=== PATIENT | male | born 1995 | race Hispanic/Latino ===

== ENCOUNTER 2022-07-31 15:02 | Emergency (ER) | payer OTHER ==
[~2022-07-31] VITALS: Ht 188 cm; Wt 108.0 kg
[~2022-07-31 15:02] MED LIST: AMOX-429 PO; LACT1CAP58 PO
[2022-07-31] MEDS ORDERED: IBUP-2070 PO (17:29)
[2022-07-31] MEDS ORDERED: KETOROLAC 30MG VIAL (30MG/ML) IM ONE (17:30)
[2022-07-31 17:37] VITALS: BP 138/72
== END 2022-07-31 17:42 | disposition home or self-care (01) ==
LOC: EDH 15:02
DX: J02.8 Acute pharyngitis due to other specified organisms (principal); B97.89 Other viral agents as the cause of diseases classified elsewhere; Z79.899 Other long term (current) drug therapy; Z79.2 Long term (current) use of antibiotics; Z20.822 Contact with and (suspected) exposure to COVID-19
CPT/HCPCS: 99283; 87635; 87880; 87804 ×2; 96372; C9803; J1885

== ENCOUNTER 2022-08-23 09:00 | Emergency (ER) | payer OTHER ==
[~2022-08-23] VITALS: Ht 177.8 cm; Wt 97.5 kg
[~2022-08-23 09:00] MED LIST changes: +IBUP-2070 PO
[2022-08-23 09:20] LABS: APPEARANCE,URINE CLEAR (CLEAR); BILIRUBIN,URINE NEGATIVE (NEGATIVE); COLOR,URINE YELLOW (YELLOW); GLUCOSE, URINE (UA) NEGATIVE (NEGATIVE); KETONES,URINE NEGATIVE (NEGATIVE); LEUKOCYTE ESTERASE ,URINE NEGATIVE Leu/uL (NEGATIVE); NITRATE,URINE NEGATIVE (NEGATIVE); OCCULT BLOOD,URINE TRACE-INTACT (NEGATIVE); PROTEIN,URINE NEGATIVE (NEGATIVE); UROBILINOGEN,URINE 0.2 mg/dL (0.2-1.0)
[2022-08-23 09:27] LABS: AMPHET/METH SCREEN,URINE NEGATIVE (NEGATIVE); BARBITURATE SCREEN, URINE NEGATIVE (NEGATIVE); BENZODIAZEPINES SCREEN,URINE POSITIVE (NEGATIVE); CANNABINOID SCREEN,URINE POSITIVE (NEGATIVE); COCAINE SCREEN,URINE POSITIVE (NEGATIVE); OPIATE SCREEN,URINE NEGATIVE (NEGATIVE); PHENCYCLIDINE SCREEN,URINE NEGATIVE (NEGATIVE)
[2022-08-23 09:32] LABS: RBC,URINE 0-1 /HPF (0-1)
[2022-08-23 09:33] LABS: BACTERIA,URINE Rare /HPF (None Seen); SQUAMOUS EPITHELIAL CELL,UR Rare /HPF (0-2)
[2022-08-23 09:41] LABS: BASOPHILS % (AUTO) 0.5 % (0.0-5.0); EOSINOPHILS % (AUTO) 0.4 % (0.0-8.0); HEMATOCRIT 46.5 % (42-54); MEAN CORPUSCULAR HEMOGLOBIN 31.8 pg (27.0-33.0); MEAN CORPUSCULAR HGB CONC 34.4 g/dL (32.0-36.0); MEAN CORPUSCULAR VOLUME 92.4 fL (79-99); MONOCYTES % (AUTO) 5.9 % (3.0-13.0); NEUTROPHILS % (AUTO) 69.7 % (40.0-77.0); PLATELET COUNT (AUTO) 350 K/uL (130-400); RED BLOOD CELL COUNT(AUTO) 5.03 MIL/uL (4.50-6.20); RED CELL DISTRIBUTION WIDTH 13.2 % (11.0-15.5); WHITE BLOOD COUNT (AUTO) 20.2 K/uL (4.8-10.8)
[2022-08-23 09:56] LABS: CARBON DIOXIDE 24 mmol/L (21-32); CHLORIDE 101 mmol/L (101-111); GLOMERULAR FILTR. RATE CALC 94 mL/min (>60); GLUCOSE,RANDOM 97 mg/dL (70-105); POTASSIUM 3.4 mmol/L (3.5-5.1); SODIUM SERUM 138 mmol/L (136-145); UREA NITROGEN, BLOOD 12 mg/dL (7-18)
[2022-08-23 10:01] LABS: ALANINE AMINOTRANSFERASE 35 U/L (12-78); ALBUMIN 3.9 g/dL (3.5-5.0); ASPARTATE AMINOTRANSFERASE 21 U/L (10-37); TOTAL PROTEIN, SERUM 7.3 g/dL (6.0-8.3)
[2022-08-23 10:12] LABS: ALCOHOL, BLOOD < 3 mg/dL (0-10)
[2022-08-23] MEDS ORDERED: IBUP-2070 PO (10:53)
[2022-08-23] MEDS ORDERED: 0.9% NACL 500ML IV.SOLN 500 ML IV ONE (11:00)
[2022-08-23] MEDS ORDERED: ACETAMINOPHEN 500 MG TABLET PO ONE (11:00)
[2022-08-23] MEDS ORDERED: KETOROLAC 15MG/ML VIAL (15MG/ML) IV ONE (11:00)
[2022-08-23 11:46] VITALS: BP 133/81
== END 2022-08-23 11:57 | disposition home or self-care (01) ==
LOC: EDH 09:00
DX: R07.89 Other chest pain (principal); F19.10 Other psychoactive substance abuse, uncomplicated; F17.200 Nicotine dependence, unspecified, uncomplicated; Z79.899 Other long term (current) drug therapy
CPT/HCPCS: 99285; 96374; 71045; 96361; 84484; 80053; 80305; 85025; 36415; 93005; 81001; J7040; J1885

== ENCOUNTER 2024-06-04 09:35 | Emergency (ER) | payer BC ==
[~2024-06-04] VITALS: Ht 188 cm; Wt 124.7 kg
[2024-06-04 09:36] VITALS: BP 142/82; PULSE 61; RESP 16; TEMP 97.9
[2024-06-04] MEDS ORDERED: AMOX1TAB16 PO (09:56)
[2024-06-04] MEDS ORDERED: FLUT16H NS (09:56)
--- NOTE | 2024-06-04 09:56 | ERN ---
General Chief Complaint: Cough Stated Complaint: COUGH, CONGESTION, SORE THROAT Time Seen by MD: 09:38 Source: patient History of Present Illness Initial Comments Patient is a 28-year-old male coming in to be evaluated for URI symptoms. Patient states that the symptoms have been ongoing for three days. Patient also states he has been having a cough. Allergies: Coded Allergies: No Known Drug Allergies (Verified Allergy, Unknown, 07/18/14) Home Meds Active Scripts Ibuprofen (Ibuprofen) 600 Mg Tablet, 600 MG PO Q6H PRN for PAIN, #30 TAB Prov:JULIETH PALMA MD 08/23/22 Ibuprofen (Ibuprofen) 600 Mg Tablet, 600 MG PO Q6H PRN for PAIN for 5 Days, #20 TAB Prov:JABIER MARTINEZP 07/31/22 Lactobacillus Rhamnosus GG (Culturelle) 1 Each Capsule, 1 EACH PO DAILYBKFST, #30 CAP Prov:JOHNNA CASTANEDA MD 07/20/14 Amoxicillin/Potassium Clav (Augmentin 875-125 Tablet) 1 Each Tablet, 1 EACH PO BID, #14 TAB Prov:JOHNNA CASTANEDA MD 07/20/14 Past Medical History Past Medical History: No Pertinent History Past Surgical History: None Social History Social History: Smokers, Drugs, ETOH ROS Dictation CONSTITUTIONAL: No chills, no fever, no weakness, no diaphoresis, no malaise. HEAD/FACE: No signs of trauma. EENT: No eye pain, no blurred vision, no tearing, no double vision, no ear pain, no ear discharge, no nose pain, no nasal congestion, no throat pain, no throat swelling, no mouth pain. RESPIRATORY: cough, no orthopnea, SOB, no stridor, no wheezing. CARDIOVASCULAR: No chest pain, no edema, no palpitations, no syncope. GASTROINTESTINAL/ABDOMINAL: No abdominal pain, no constipation, no diarrhea, no nausea, no vomiting. GENITOURINARY: No abnormal discharge, no dysuria, no frequent urination, no hematuria. No complaints of pain in the genitals. MUSCULOSKELETAL: No back pain, no gout, no joint pain, no joint swelling, no muscle pain, no muscle stiffness, no neck pain. INTEGUMENTARY: No change in color, no change in hair/nails, no dryness, no lesion, no lumps, no rash. NEUROLOGICAL/PSYCH: No anxiety, not depressed, no emotional problem, no headache, no numbness, no pre-existing deficit, no history of seizures, no tremors, no weakness. HEMATOLOGIC/LYMPHATIC: Not anemic, no history of blood clots, no apparent bleeding, no bruising, glands not swollen. All Systems Negative, Except as Noted. Physical Exam Physical Exam Dictation VITAL SIGNS: Reviewed. GENERAL APPEARANCE: Alert, oriented x3, no acute distress, obese. HEAD AND FACE: Non-traumatic. EYES: PERRL, pink conjunctivas, eyelid no trauma, anterior chamber clear. EARS: Pinnas intact and no signs of trauma or erythema. Ear canals clear and no discharge. TMs erythema. NOSE: No discharge, no bleeding. Bilateral nasal turbinate swelling OROPHARYNX: Mouth normal, teeth no caries, tongue pink. Pharynx clear, no erythema. Tonsils no exudates, no abscesses noted. Mucous membrane moist. NECK: Supple, non-tender, no thyromegaly, no masses, no JVD, no bruits. BREAST: Deferred. CHEST: No tenderness, no crepitus, no paradoxical movement, no retractions. LUNGS: Clear, well-ventilated, symmetric, no rales, no wheezing, no rhonchi, no stridor, good breath sounds bilaterally. HEART: Regular rate, regular rhythm, no murmur, no gallops. VASCULAR: No peripheral edema. ABDOMEN: Soft, positive bowel sounds, nondistended, no guarding, nontender, no rebound, no masses no hepatomegaly, no splenomegaly, no Aguirre's sign, no h ernias. RECTAL: Deferred. GENITAL: Deferred. NEUROLOGICAL: Normal speech, gross motor function intact, gross sensory functi on intact. MUSCULOSKELETAL: Neck nontender, full range of motion, back nontender, full range of motion. EXTREMITIES: Nontender, full range of motion. SKIN: Color pink, dry, no turgor, no rash, no lacerations, no abrasions, no contusions. LYMPHATICS: Deferred. Results Laboratory and Microbiology Labs Reviewed?: Yes MDM MDM: Differential diagnosis: Sinusitis, URI Patient is 28-year-old male coming in to be evaluated for URI symptoms. On physical exam bilateral nasal turbinate swelling bilateral tympanic membrane erythema oropharyngeal erythema. Patient will be discharged with a diagnosis of sinusitis antibiotics will be provided I advised him appropriate follow up with PCP in 1-2 days. ED Course Orders Procedure Category Date Status Time Dexamethasone 4mg/Ml PHA 06/04/24 Verified 1ml Vial (Dexametha 10:00 Ketorolac PHA 06/04/24 Verified Tromethamine 30mg/Ml 10:00 Vital Signs Date Time Temp Pulse Resp B/P (MAP) Pulse Ox O2 Delivery O2 Flow Rate FiO2 06/04/24 09:36 97.9 61 16 142/82 97 Room Air 0 DX & DISP Disposition: Discharge Departure Impression: Primary Impression: Sinusitis Condition: Stable Scripts Fluticasone Propionate (Flonase Nasal [place]) 50 Mcg/Actuation [place] 2 SPRAY NS DAILY, #16 GM 0 Refills Prov: FERNANDO TORRES MD 06/04/24 Amoxicillin/Potassium Clav (Amox Tr-K Clv 875-125 mg Tab) 875 Mg-125 Mg Tablet 1 TAB PO BID for 10 Days, #20 TAB 0 Refills Prov: FERNANDO TORRES MD 06/04/24 Additional Instructions: FOLLOW-UP WITH PRIMARY CARE PROVIDER IN 1 TO 2 DAYS. TAKE MEDICATIONS DIRECTED HERE IN THE EMERGENCY ROOM. OKAY TO CONTINUE HOME MEDICATIONS UNLESS OTHERWISE DISCUSSED DURING YOUR VISIT IN THE EMERGENCY ROOM TODAY. RETURN TO YOUR NEAREST EMERGENCY ROOM IF SYMPTOMS WORSEN OR IF THERE IS NO IMPROVEMENT. CALL 911 IF YOU NEED IMMEDIATE ASSISTANCE. TAKE TYLENOL [id number] NEEDED AND IF NO CONTRAINDICATIONS ARE PRESENT. INCREASE ORAL HYDRATION. A WOUND CULTURE OR URINE CULTURE WAS ORDERED HERE IN THE EMERGENCY ROOM DEPARTMENT PLEASE FOLLOW-UP WITH PRIMARY CARE PROVIDER AND ADVISE THEM TO GET REPEAT PORTS FROM OUR FACILITY. IF YOU HAD ANY KEITH WRAP/SPLINTS THAT WERE APPLIED HERE, PLEASE DO NOT REMOVE THEM UNTIL YOU SEE YOUR PRIMARY CARE OR SPECIALTY. Referrals: Referrals: NONE (PCP) GAURI BERRIOS MD Time of Disposition: 09:55 FERNANDO TORRES MD Jun 04, 2024 09:56
[2024-06-04] MEDS: ketOROlac 30MG VIAL (30MG/ML) IM ONE (10:06)
[2024-06-04] MEDS: dexaMETHasone SOD PHOSPHATE 4 MG/ML 1ML VIAL IM ONE (10:06)
== END 2024-06-04 10:21 | disposition home or self-care (01) ==
LOC: EDH 09:35
DX: J32.9 Chronic sinusitis, unspecified (principal); F17.200 Nicotine dependence, unspecified, uncomplicated
CPT/HCPCS: 99284; 96372 ×2; J1100; J1885

== ENCOUNTER 2025-04-30 17:33 | Emergency (ER) | payer BC ==
[~2025-04-30] VITALS: Ht 185.4 cm; Wt 111.6 kg
[~2025-04-30 17:33] MED LIST changes: +AMOX1TAB16 PO; +FLUT16H NS; +IBUP-1492 PO; -IBUP-2070 PO
[2025-04-30] MEDS: AZITHROMYCIN 250 MG TABLET PO ONE (17:59)
[2025-04-30 18:00] LABS: APPEARANCE,URINE CLEAR (CLEAR); GLUCOSE, URINE (UA) NEGATIVE (NEGATIVE); LEUKOCYTE ESTERASE ,URINE NEGATIVE Leu/uL (NEGATIVE); NITRATE,URINE NEGATIVE (NEGATIVE); OCCULT BLOOD,URINE +- (TRACE) (NEGATIVE)
[2025-04-30] MEDS: LIDOCAINE HCL 1% 20 ML VIAL ONE (18:01)
[2025-04-30 18:02] LABS: ADD UA MICROSCOPIC YES
--- NOTE | 2025-04-30 18:09 | ERN ---
General Chief Complaint: Penis Problem Stated Complaint: PENILE DRAINAGE Time Seen by MD: 17:37 Time Seen by Midlevel: 17:37 Source: patient History of Present Illness Initial Comments 29-year-old male presenting to the ER with penile discharge described as yellowish in nature. Denies any dysuria or hematuria. Patient states his symptoms started two days ago. He is sexually active with last reported sexual intercourse one week ago. He does admit history of a sexually transmitted disease in the past. Allergies: Coded Allergies: No Known Drug Allergies (Verified Allergy, Unknown, 07/18/14) Home Meds Active Scripts Fluticasone Propionate (Flonase Nasal [place]) 50 Mcg/Actuation [place], 2 SPRAY NS DAILY, #16 GM 0 Refills Prov:FERNANDO TORRES MD 06/04/24 Amoxicillin/Potassium Clav (Amox Tr-K Clv 875-125 mg Tab) 875 Mg-125 Mg Tablet, 1 TAB PO BID for 10 Days, #20 TAB 0 Refills Prov:FERNANDO TORRES MD 06/04/24 Ibuprofen (Ibuprofen) 600 Mg Tablet, 600 MG PO Q6H PRN for PAIN, #30 TAB Prov:JULIETH PALMA MD 08/23/22 Ibuprofen (Ibuprofen) 600 Mg Tablet, 600 MG PO Q6H PRN for PAIN for 5 Days, #20 TAB Prov:JABIER MARTINEZP 07/31/22 Lactobacillus Rhamnosus GG (Culturelle) 1 Each Capsule, 1 EACH PO DAILYBKFST, #30 CAP Prov:JOHNNA CASTANEDA MD 07/20/14 Amoxicillin/Potassium Clav (Augmentin 875-125 Tablet) 1 Each Tablet, 1 EACH PO BID, #14 TAB Prov:JOHNNA CASTANEDA MD 07/20/14 Past Medical History Past Medical History: STD Past Surgical History: None Social History Social History: Smokers, Drugs, ETOH ROS Dictation CONSTITUTIONAL: Negative except for HPI HEAD/FACE: Negative except for HPI EENT: Negative except for HPI RESPIRATORY: Negative except for HPI GASTROINTESTINAL/ABDOMINAL: Negative except for HPI GENITOURINARY: Negative except for HPI MUSCULOSKELETAL: Negative except for HPI INTEGUMENTARY: Negative except for HPI NEUROLOGICAL/PSYCH: Negative except for HPI HEMATOLOGIC/LYMPHATIC: Negative except for HPI All Systems Negative, Except as noted above. 13 point review of systems assessed and all negative except for above. Physical Exam Physical Exam Dictation Vital Signs reviewed General Appearance: Alert, oriented x 3, no acute distress, well developed, nourished. Head and Face: non-traumatic. Eyes: PERRL, pink conjunctivas, eyelid no trauma, anterior chamber with arcus senilis. Ears: Pinnas intact and no signs of trauma or erythema ear canals clear and no discharge TM no erythema Nose: No discharge, no bleeding. Oropharynx: Mouth normal, tongue pink, pharynx clear,no erythema, tonsils no exudates, no abscesses noted, mucous membrane moist Neck: Supple, non-tender, no thyromegaly, no masses, no JVD, no bruits Breast:Deferred Chest:No tenderness, no crepitus, no paradoxical movement, no retractions Lungs:Clear, well-ventilated, symmetric, no rales, no wheezing, no rhonchi, no stridor, good breath sounds bilaterally Heart: Regular rate, regular rhythm, no murmur, no gallops Vascular: no peripheral edema, Abdomen: Soft, positive bowel sounds, nondistended, no guarding, nontender, no rebound, no masses no hepatomegaly, no splenomegaly, no Aguirre's sign, no hernias. Rectal: Deferred Genital: Deferred Neurological: Normal speech, motor function intact, sensory function intact Musculoskeletal: Neck nontender, full range of motion, back nontender, full range of motion, Extremities: nontender, full range of motion Skin: Color pink, dry, no turgor, no rash, no lacerations, no abrasions, no contusions. Lymphatic: Deferred Results Laboratory and Microbiology Lab and Micro Result Laboratory Tests Test 04/30/25 17:45 Urine Color YELLOW (YELLOW) Urine Appearance CLEAR (CLEAR) Urine pH 6.0 (5.0-8.0) Urine Specific [place] 1.028 (1.001-1.031) Urine Protein NEGATIVE mg/dL (NEGATIVE) Urine Glucose (UA) NEGATIVE mg/dL (NEGATIVE) Urine Ketones NEGATIVE mg/dL (NEGATIVE) Urine Occult Blood +- (TRACE) (NEGATIVE) H Urine Nitrate NEGATIVE (NEGATIVE) Urine Bilirubin NEGATIVE mg/dL (NEGATIVE) Urine Urobilinogen 0.2 mg/dL (0.2-1.0) Urine Leukocyte Esterase NEGATIVE Liliana/uL Labs Reviewed?: Yes MDM MDM: 29-year-old male presenting to the ER with penile discharge described as yellowish in nature. Denies any dysuria or hematuria. Patient states his symptoms started two days ago. He is sexually active with last reported sexual intercourse one week ago. He does admit history of a sexually transmitted disease in the past. Physical examination is reassuring. Vital signs are stable. Given that there is a concern for a sexually transmitted disease a urinalysis and chlamydia and gonorrhea testing was performed in the emergency department. We will go ahead and treat with 1 g of ceftriaxone and1 g of azithromycin. 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 Differential diagnosis: Sexually transmitted infection, urinary tract infection, There are no social concerns with this patient. Prescription drug management Prescriptions will include: None Medical management and examination interpretation discussions were had by me with other qualified healthcare professionals as indicated for the patient's care. ED Course Orders Procedure Category Date Status Time Urinalysis Profile LAB 04/30/25 In Process 17:41 Chlamydia & Gc Pcr LIDIA 04/30/25 In Process 17:41 Ceftriaxone 1g Vial PHA 04/30/25 Complete (Rocephine 1g Inj) 18:00 Azithromycin PHA 04/30/25 Complete (Zithromax) 18:00 Lidocaine Hcl 1% 20ml PHA 04/30/25 Complete Vial (Lidocaine Hc 17:58 Current Medications Medications (Trade) Dose Ordered Sig/Ashley Route PRN Reason Start Time Stop Time Status Last Admin Dose Admin Azithromycin (Zithromax) 1,000 mg ONCE ONCE PO 04/30/25 18:00 04/30/25 18:01 DC 04/30/25 17:59 Ceftriaxone Sodium (ROCEphine 1G INJ) 1 gm ONCE ONCE IM 04/30/25 18:00 04/30/25 18:01 DC 04/30/25 18:00 Lidocaine HCl (Lidocaine HCl 1% 20ml Vial) 20 ml STK-MED ONCE .ROUTE 04/30/25 17:58 04/30/25 17:58 DC 04/30/25 18:01 Vital Signs Date Time Temp Pulse Resp B/P (MAP) Pulse Ox O2 Delivery O2 Flow Rate FiO2 04/30/25 17:36 98.1 62 18 125/78 97 Room Air 0 DX & DISP Disposition: Discharge Departure Impression: Primary Impression: Possible exposure to STD Additional Impression: Penile discharge Condition: Stable Additional Instructions: You were given 1 g of ceftriaxone and 1 g of azithromycin in the emergency department. These are antibiotics that treat chlamydia and gonorrhea. Refrain from any sexual activity until your chlamydia and gonorrhea results come back. Referrals: NONE (PCP) Time of Disposition: 18:08 I have reviewed the case, and I agree with, Diagnosis and Plan I performed the substantive portion of the visit. I have reviewed and personally made and approve the management plan that is documented in the note by myself or the JEANNETTE. I acknowledge for responsibility for the patient's management plan. GAURI LOVING PAC Apr 30, 2025 18:09
[2025-04-30 18:29] VITALS: BP 129/75; PULSE 84; RESP 16; TEMP 98.8; O2SAT 98
== END 2025-04-30 18:30 | disposition home or self-care (01) ==
LOC: EDH 17:33
DX: R36.9 Urethral discharge, unspecified (principal); F17.200 Nicotine dependence, unspecified, uncomplicated; Z20.2 Contact with and (suspected) exposure to infections with a predominantly sexual mode of transmission
CPT/HCPCS: 99284; 87491; 87591; 81001; 96372; J0696